=== PATIENT | female | born 1975 | race Hispanic/Latino ===

== ENCOUNTER 2016-11-07 22:41 | Emergency (ER) | payer OTHER ==
[~2016-11-07] VITALS: Ht 167.6 cm; Wt 83.9 kg
[2016-11-07 22:56] VITALS: BP 122/82
--- NOTE | 2016-11-07 23:20 | ED NECK/BACK PAIN COMPLAINT ---
History of Present Illness General Chief Complaint: Low Back Pain/Injury Stated Complaint: LOW BACK PAIN X4 DAYS Source: patient, family Exam Limitations: no limitations Vital Signs & Intake/Output Vital Signs & Intake/Output Vital Signs Date Time Temp Pulse Resp B/P Pulse O2 O2 Flow FiO2 Ox Delivery Rate 11/07 2321 Room Air 11/07 2256 98.2 81 16 122/82 98 Room Air Room Air ED Intake and Output 11/08 0000 11/07 1200 Intake Total 0 Output Total Balance 0 Intake, Oral 0 Patient 185 lb Weight Allergies Coded Allergies: No Known Allergies (11/07/16) Reconcile Medications Oxycodone HCl/Acetaminophen (Percocet 5-325 MG Tablet) 5 MG-325 MG TABLET 1-2 TAB PO Q6P PRN PAIN Prednisone 10 MG TABLET 1 TAB PO DAILY BACK PAIN TAKE 4 TABS FOR 3 DAYS THEN TAKE 3 TABS FOR 3 DAYS THEN TAKE 2 TABS FOR 3 DAYS THEN TAKE 1 TAB FOR 3 DAYS Triage Note: PT TO TRIAGE WITH LWOER BACK PAIN THAT RADIATES INTO HER HIPS AND LOWER ABD. PT HAS NEVER HAD PAIN SIMILAR, PAIN IS 10/10 SHARP. DENIES TROUBLE WITH URINATION. DENIES N/V/D. DENIES FEVERS. HX OF L5-S1 FUSION ON DEC LAST YEAR. DENIES NUMBNESS OR TINGLING. Triage Nurses Notes Reviewed? yes : No Patient currently breastfeeds: No HPI: Patient presents with a 4 day episode of worsening lower back pain. The pain is aching and cramping in nature. The pain occasionally radiates into her hips and into her lower abdomen however that has not occurred in the past 2 days. There is no weakness or numbness. There is no tingling. There is no incontinence of bowel or bladder. Patient states that walking and movement makes the pain worse. There's been no known trauma. Patient did have a lumbar fusion 3 years ago. That was through [employer]. so she is no longer able to see that surgeon. There are no fevers or chills. The pain is 10 out of 10. Patient was seen at another emergency room 2 days ago and was prescribed Flexeril and tramadol which she has been taking without any relief. Past History Travel History Traveled to [place] past 21 day No Medical History Any Pertinent Medical History? see below for history Neurological: NONE EENT: NONE Cardiovascular: NONE Respiratory: asthma Gastrointestinal: ibs Hepatic: NONE Renal: NONE Musculoskeletal: NONE Psychiatric: NONE Endocrine: NONE Blood Disorders: NONE Cancer(s): NONE NETWORK ENGINEERING ADVISOR/Reproductive: NONE Surgical History Surgical History: spinal fusion (LUMBAR) Psychosocial History What is your primary language [place] Tobacco Use: Never used ETOH Use: denies use Illicit Drug Use: denies illicit drug use Family History Hx Contributory? No Review of Systems Review of Systems Constitutional: Reports: no symptoms. Ears, Nose, Throat, Mouth: Reports: no symptoms. Respiratory: Reports: no symptoms. Cardiovascular: Reports: no symptoms. Gastrointestinal/Abdominal: Reports: no symptoms. Musculoskeletal: Reports: see HPI, back pain. Neurological/Psychological: Reports: no symptoms. Physical Exam Physical Exam General Appearance: well developed/nourished, alert, awake, moderate distress Head: atraumatic, normal appearance Eyes: Bilateral: PERRL, EOMI. Ears, Nose, Throat, Mouth: hearing grossly normal, moist mucous membrane Neck: normal inspection, supple, full range of motion, normal alignment, no midline tenderness Respiratory: normal breath sounds, chest non-tender, no respiratory distress, lungs clear Cardiovascular: regular rate/rhythm, normal peripheral pulses Gastrointestinal: normal bowel sounds, soft, non-tender, no organomegaly Back: decreased range of motion, muscle spasm, no vertebral tenderness, NO CVA TENDERNESS Extremities: non-tender, normal range of motion Straight Leg Raising: Right: Negative. Left: Negative. Sensory: Medial Le: L4R, L4L. Top of Foot: 2: L5R, L5L. Sole of Foot: 2: SIR, ONAM. Motor: Deficit L4 Right: No Deficit L4 Left: No Deficit L5 Right: No Deficit L5 Left: No Deficit S1 Right: No Deficit S1 Right: No DTR: Deficit L4 Left: No Deficit L4 Right: No Deficit S1 Left: No Deficit S1 Right: No Patellar: 4: L4 Right, L4 Left. Achilles: 3: S1 Right, S1 Left. Neurologic/Psych: no motor/sensory deficits, awake, alert, oriented x 3, normal mood/affect Skin: intact, normal color, warm/dry Progress Differential Diagnosis: cauda equina syn, herniated disc, myofascial strain, T/L spine injury Plan of Care: Current Medications Sig/Gucci Start time Last Medication Dose Stop Time Status Admin Ketorolac 60 MG ONCE ONE 01/03 2330 UNVr Tromethamine 11/07 2330 (Toradol) Oxycodone/ 1 TAB ONCE ONE 11/07 2329 UNVr Acetaminophen 11/07 2330 (Percocet) Prednisone 60 MG ONCE ONE 11/07 2329 UNVr 11/07 2330 Departure Departure Disposition: HOME OR SELF CARE Condition: Stable Clinical Impression Primary Impression: Low back pain Qualifiers: Chronicity: acute Back pain laterality: bilateral Sciatica presence : without sciatica Qualified Code: M54.5 - Low back pain Referrals: SOPHY LEACH APRN (PCP/Family) MADIHA GILLESPIE,GRACE Abdullahi Additional Instructions: USE MOIST HEAT YOU MAY NEED TO HAVE A MRI. WE ARE UNABLE TO ORDER ONE FROM THE ER BUT FOLLOW UP WITH YOUR [facility] DOCTOR OR DR. CLEARY FOR FURTHER EVALUATION AND TREATMENT. Departure Forms: Customer Survey General Discharge Information Prescriptions: Current Visit Scripts Oxycodone HCl/Acetaminophen (Percocet 5-325 MG Tablet) 1-2 TAB PO Q6P PRN PAIN #20 TAB Prednisone 1 TAB PO DAILY #30 TAB TAKE 4 TABS FOR 3 DAYS THEN TAKE 3 TABS FOR 3 DAYS THEN TAKE 2 TABS FOR 3 DAYS THEN TAKE 1 TAB FOR 3 DAYS
[2016-11-07] MEDS ORDERED: PREDNISONE10 M2 PO (23:43)
[2016-11-07] MEDS ORDERED: PERCOCET 5-3251 EACH PO (23:43)
== END 2016-11-08 00:14 ==
LOC: ERH 22:41
DX: M54.5 Low back pain (principal)
CPT/HCPCS: J1885